=== PATIENT | male | born 1970 | race American Indian/Alaskan Native ===

== ENCOUNTER 2018-09-29 19:00 | Emergency (ER) | payer SELFPAY ==
[2018-09-29 19:09] VITALS: RESP 18
--- NOTE | 2018-09-29 19:44 | ED PDOC ---
HPI: General Adult Time Seen by Provider: 09/29/18 19:24 Chief Complaint (Nursing): Medical Clearance Chief Complaint (Provider): Medical Clearance History Per: Patient, Other ([facility]) History/Exam Limitations: no limitations Onset/Duration Of Symptoms: Days (x1 week (hip pain)) Current Symptoms Are (Timing): Still Present Additional Complaint(s): 48 year old male presents to the ED under custody of [facility] for medical and psychiatric clearance before incarceration. PD reports patient is under custody for multiple warrants and drug possession, and patient admits to doing heroin, cocaine, and marijuana today, but denies any alcohol use today. He is complaining currently of bilateral hip pain for the past week, and notes a history of arthritis, but otherwise denies other complaints, falls/trauma, suicidal / homicidal ideation, visual / auditory hallucinations, and fever. PMD: none provided Past Medical History Reviewed: Historical Data, Nursing Documentation, Vital Signs Vital Signs: Last Vital Signs Temp 98.6 F 09/29/18 19:06 Pulse 52 L 09/29/18 19:06 Resp 18 09/29/18 19:06 BP 116/79 09/29/18 19:06 Pulse Ox 99 09/29/18 19:06 - Medical History PMH: Arthritis - Surgical History Surgical History: No Surg Hx - Family History Family History: States: Unknown Family Hx - Social History Current smoker - smoking cessation education provided: Yes Alcohol: Social (but not today) Drugs: Cannabis, Cocaine, Other (heroin) - Allergies Allergies/Adverse Reactions: Allergies Allergy/AdvReac Type Severity Reaction Status Date / Time No Known Allergies Allergy Verified 09/29/18 19:06 Review of Systems ROS Statement: Except As Marked, All Systems Reviewed And Found Negative Constitutional: Negative for: Fever Musculoskeletal: Positive for: Other (bilateral hip pain) Psych: Negative for: Suicidal ideation (and HI), Other (visual / auditory hallucinations) Physical Exam - Reviewed Nursing Documentation Reviewed: Yes Vital Signs Reviewed: Yes - Physical Exam Comments: GENERAL APPEARANCE: Patient is awake, alert, oriented x 3, in no acute distress. SKIN: Warm, dry; (-) cyanosis ENMT: Mucous membranes moist. Airway patent: (-) stridor. NECK: Supple, FROM HEART AND CARDIOVASCULAR: (-) irregularity CHEST AND RESPIRATORY: (-) rales, (-) rhonchi, (-) wheezes; breath sounds equal bilaterally. Respirations even and nonlabored. ABDOMEN: Soft, (-) distention, (-) tenderness, (-) guarding. EXTREMITIES: FROM of bilateral lower extremities, (-) tenderness. Sensation intact throughout (+) pulses NEURO AND PSYCH: Mental status as above. Answers questions appropriately. emr trainer: Intact. Pupils equal and reactive; EOMI; (-) facial asymmetry. Strength symmetric. Gait: steady and unassisted in ED. - ECG O2 Sat by Pulse Oximetry: 99 (RA) Pulse Ox Interpretation: Normal Medical Decision Making Medical Decision Making: Initial Impression: acute hip pain, substance abuse, clearance for incarceration Time: 1929 Initial Plan: --Crisis evaluation --Tylenol 650mg PO --Reevaluation 2004 Per crisis evaluation, patient to be discharged with the diagnosis of adjustment disorder per Dr Joshi. On re-evaluation, patient reports improvement of symptoms. On exam, patient remains AAOx3, in no acute distress. Vitals stable. Lab/Diagnostic results d/w the patient in great detail. Diagnosis of acute hip pain, substance abuse, medical and psychiatric clearance for incarceration d/w the patient. Based on history, exam and diagnostic results, plan will be for discharge into PD custody. Return to the emergency room at any time for any new or worsening symptoms. Patient states he fully agrees with and understands discharge instructions. States that he agrees with the plan and disposition. Verbalized and repeated discharge instructions and plan. I have given the patient opportunity to ask any additional questions. Scribe Attestation: Documented by Rashmi Aguilera, acting as a scribe for Randi Cisneros PA-C. Provider Scribe Attestation: All medical record entries made by the Scribe were at my direction and personally dictated by me. I have reviewed the chart and agree that the record accurately reflects my personal performance of the history, physical exam, medical decision making, and the department course for this patient. I have also personally directed, reviewed, and agree with the discharge instructions and disposition. Disposition - Clinical Impression Clinical Impression: Acute hip pain, Evaluation by psychiatric service required, Medical clearance for incarceration, Polysubstance abuse - Patient ED Disposition Is Patient to be Admitted: No Counseled Patient/Family Regarding: Studies Performed, Diagnosis, Need For Followup, Rx Given - Disposition Referrals: [facility] [Outside] Disposition: Discharged/Transfer to Law Enforcement Disposition Time: 20:05 Condition: STABLE Additional Instructions: PATIENT IS MEDICALLY AND PSYCHIATRICALLY STABLE FOR INCARCERATION. The emergency medical care you received today was directed at your acute symptoms. If you were prescribed any medication, please fill it and take as directed. It may take several days for your symptoms to resolve. Return to the Emergency Department if your symptoms worsen, do not improve, or if you have any other problems. Please contact your doctor in 2 days for re-evaluation and follow up / or call one of the physicians/clinics you have been referred to that are listed on the Patient Visit Information form that is included in your discharge packet. Bring any paperwork you were given at discharge with you along with any medications you are taking to your follow up visit. Our treatment cannot replace ongoing medical care by a primary care provider (PCP) outside of the emergency department. Instructions: Hip Pain, Polysubstance Abuse Forms: [employer] (Latvian) Print Language: DIVEHI - POA Present On Arrival: None
[2018-09-29 21:42] VITALS: BP 130/88; PULSE 78; TEMP 98
[2018-10-03 01:18] VITALS: O2SAT 99
== END 2018-09-29 21:41 | disposition home or self-care (01) ==
LOC: H.ER 19:00
DX: F19.10 Other psychoactive substance abuse, uncomplicated (principal); M25.559 Pain in unspecified hip